=== PATIENT | male | born 1980 | race Caucasian/White ===

== ENCOUNTER 2021-06-18 07:58 | Outpatient (CLI) | payer BC ==
[2021-06-18] MEDS ORDERED: Iopamidol 370 76% 100 ML VIAL ONE (10:25)
== END 2021-06-18 07:59 | disposition home or self-care (01) ==
LOC: CT 07:58
PROVIDERS: ATTEND Urology
DX: N32.9 Bladder disorder, unspecified (principal); N28.82 Megaloureter
CPT/HCPCS: 74178; Q9967

== ENCOUNTER 2021-06-21 06:11 | Day surgery (SDC) | payer BC ==
[2021-06-18 11:04] VITALS: BMI 29.0
[2021-06-21] MEDS ORDERED: Levofloxacin 500 mg/D5W 100 ml Premix Bag ONE (07:17)
[2021-06-21] MEDS ORDERED: Iothalamate Meglumine 60% 30 ML VIAL FS ONE (08:53)
[2021-06-21] MEDS ORDERED: Midazolam HCl 2 mg/2 ml Vial ONE (09:12)
[2021-06-21] MEDS ORDERED: Fentanyl 100 MCG/2 ML VIAL ONE ×2 (09:13→11:34)
[2021-06-21] MEDS ORDERED: Lidocaine 1% PF 5 ML VIAL ONE (09:16)
[2021-06-21] MEDS ORDERED: Rocuronium Bromide 10 MG/ML (10ML VIAL) ONE (09:16)
[2021-06-21] MEDS ORDERED: Ondansetron PF 4 MG/2 ML Vial ONE (09:16)
[2021-06-21] MEDS ORDERED: Dexamethasone 20 MG/5 ML VIAL ONE (09:16)
[2021-06-21] MEDS ORDERED: PROPOFOL 200 MG/20 ML VIAL ONE (09:16)
[2021-06-21] MEDS ORDERED: Furosemide 20 MG/2 ML VIAL ONE (09:46)
[2021-06-21] MEDS ORDERED: Methylene Blue 50 MG/10 ML AMPUL ONE (09:46)
[2021-06-21] MEDS ORDERED: SUGAMMADEX SODIUM 200 MG/2 ML VIAL ONE (10:28)
[2021-06-21] MEDS ORDERED: B & O ONE (10:29)
[2021-06-21] MEDS ORDERED: Phenazopyridine HCl 100 MG TAB ONE (11:34)
[2021-06-21] MEDS ORDERED: Oxybutynin 5 MG TAB ONE (11:34)
[2021-06-21] MEDS ORDERED: Ondansetron ODT 4 MG TAB ONE (12:56)
[2021-06-21] MEDS ORDERED: HYDROcodone/Acetaminophen 5/325 mg Tablet ONE (13:13)
== END 2021-06-21 14:00 | disposition home or self-care (01) ==
LOC: SDC 06:11
PROVIDERS: ATTEND Urology
PROC: 0TBB8ZX Excision of Bladder, Via Natural or Artificial Opening Endoscopic, Diagnostic (ICD-10-PCS; principal; 2021-06-21)
PROC: 0T788DZ Dilation of Bilateral Ureters with Intraluminal Device, Via Natural or Artificial Opening Endoscopic (ICD-10-PCS; principal; 2021-06-21)
DX: N30.80 Other cystitis without hematuria (principal); R39.198 Other difficulties with micturition; R35.0 Frequency of micturition; R39.13 Splitting of urinary stream; K21.9 Gastro-esophageal reflux disease without esophagitis; Z87.891 Personal history of nicotine dependence; Z79.899 Other long term (current) drug therapy
CPT/HCPCS: 36415; 74420; 86850; 86900; 86901; 88307; C2617; J1100; J1940; J1956; J2250; J2405; J2704; J3010; Q0162; Q9968